=== PATIENT | female | born 1985 | race African-American/Black ===

== ENCOUNTER 2018-08-20 09:41 | Observation (INO) | payer OTHER ==
--- NOTE | 2018-08-20 10:44 | PDOC ---
History of Present Illness - General Chief Complaint: Revisit, Lab Variance Stated Complaint: BLOOD TRANSFUSION Time Seen by Provider: 08/20/18 10:03 History Source: Patient Exam Limitations: No Limitations - History of Present Illness Initial Comments: 08/20/18 10:41 33-year-old female history of heavy periods and fibroids here today complaining of anemia. Patient states she had blood drawn 2 days ago with since told that her hemoglobin was 5 she does report intermittent headaches and feeling lightheaded a few days prior denies any syncope no melena or bloody stools does have heavy periods when present. No other current complaints no known history of previous anemia no prior transfusions Past History - Past Medical History Allergies/Adverse Reactions: Allergies Allergy/AdvReac Type Severity Reaction Status Date / Time No Known Allergies Allergy Verified 08/20/18 09:48 Home Medications: Ambulatory Orders NK [No Known Home Medication] 08/18/18 COPD: No Other medical history: leiomyoma of uterus - Suicide/Smoking/Psychosocial Hx Smoking History: Never smoked Review of Systems - Review of Systems Constitutional: No: Chills, Diaphoresis, Fever Respiratory: No: Cough, Orthopnea, Shortness of Breath Cardiac (ROS): No: Chest Pain, Edema Hematologic/Lymphatic: Yes: Anemia All Other Systems: Reviewed and Negative *Physical Exam - Vital Signs Last Vital Signs Temp Pulse Resp BP Pulse Ox 98.2 F 114 H 16 128/70 100 08/20/18 09:51 08/20/18 09:51 08/20/18 09:51 08/20/18 09:51 08/20/18 09:51 - Physical Exam Comments: 08/20/18 10:43 Awake alert no acute distress lungs are clear bilaterally heart is regular without any murmurs rubs or gallops abdomen is soft and nontender skin is warm and dry no rash noted extremities are warm and well-perfused patient is alert and oriented 3 ED Treatment Course - LABORATORY CBC & Chemistry Diagram: 08/20/18 10:55 08/20/18 10:55 Medical Decision Making - Medical Decision Making 08/20/18 10:43 Differential diagnosis includes iron deficiency anemia hemolytic anemia plan CBC type and screen possible transfusion as needed *DC/Admit/Observation/Transfer Diagnosis at time of Disposition: Anemia - Discharge Dispostion Decision to Admit order: Yes - Referrals - Patient Instructions - Post Discharge Activity
[2018-08-20 11:16] LABS: BASO % 1.7 % (0-2.0); EOS % 2.8 % (0-4.5); HEMATOCRIT 20.9 % (32.4-45.2); MCHC 27.3 g/dl (32.0-36.0); MEAN CELL VOLUME 54.5 fl (80-96); MEAN PLT VOLUME 8.4 fl (7.5-11.1); MONO % 12.1 % (3.8-10.2); NEUT % 35.4 % (42.8-82.8); PLATELET COUNT 471 K/MM3 (134-434); RBC 3.84 M/mm3 (3.60-5.2); RDW 21.6 % (11.6-15.6); WHITE BLOOD COUNT 3.6 K/mm3 (4.0-10.0)
[2018-08-20 11:19] LABS: MCH 14.9 pg (25.7-33.7)
[2018-08-20 11:20] LABS: HEMOGLOBIN 5.7 GM/dL (10.7-15.3)
[2018-08-20 12:01] LABS: ALBUMIN 3.2 g/dl (3.4-5.0); ALK PHOS 57 U/L (45-117); ANION GAP 3 MMOL/L (8-16); BILIRUBIN,TOTAL 0.2 mg/dL (0.2-1); BLOOD UREA NITROGEN 12 mg/dL (7-18); CALCIUM 8.2 mg/dL (8.5-10.1); CHLORIDE 105 mmol/L (98-107); CO2 28 mmol/L (21-32); CREATININE 0.8 mg/dL (0.55-1.3); GLUCOSE,RANDOM 86 mg/dL (74-106); LDH 220 U/L (84-246); POTASSIUM 4.2 mmol/L (3.5-5.1); SGOT/AST 24 U/L (15-37); SGPT/ALT 25 U/L (13-61); SODIUM 136 mmol/L (136-145); TOT PROT 8.3 g/dl (6.4-8.2)
[2018-08-20] MEDS ORDERED: IRON SUCROSE INJECTION 100 MG in SODIUM CHLORIDE 100 ML IVPB ONE (14:45)
--- NOTE | 2018-08-20 15:48 | HP ---
CHIEF COMPLAINT: Lightheadedness PCP: HISTORY OF PRESENT ILLNESS: Patient is a 33 year old female with history significant for uterine fibroids presents with complaint of lightheadedness for the past 2-3 days. States that she had her pre-operative labs drawn at [facility] two days ago for uterine myomectomy scheduled for 08/24/2018. She was informed that her hemoglobin was low, and she was to come to emergency department immediately for blood transfusion and evaluation. She endorses dysmenorrhea, with heavy menstrual periods that have been increasing in severity for the past two years. The menstrual periods last approx. seven days, with worst pain and heaviest bleeding beginning around day three. She is unable to count the number of sanitary pads she uses. She denies history of anemia, and has never received blood transfusion in the past. Today she denies falls, loss of consciousness, headache, change in vision, tinnitus, chest pain, palpitations, abdominal pain, nausea, vomiting, diarrhea, constipation, diarrhea, melena, hematuria, hematochezia. [employer]: A3. Last menstrual period 08/07/2018. She sees Dr. Norman at [facility]. ER course was notable for: (1) Hb 5.7, Hct 20.9, MCV 54.5, Ferritin 2.6 (2) IV Iron, PRBCs (3) Negative stool for occult blood Recent Travel: PAST MEDICAL HISTORY: uterine fibroids PAST SURGICAL HISTORY: appendectomy 15 years ago Social History: Smoking: admits former smoking history of 1 pack per day for two years. Quit 4 years ago. Alcohol: admits former social drinking of approx. 5 bottles of beer. Denies any alcohol within past year. Drugs: Denies illicit drug use. Family History: Mother alive and well at 54 years old, unaware of any medical conditions. Father at 75 years old due to unknown cause. Allergies: Denies any allergies to food, or medication. No Known Allergies Allergy (Verified 08/20/18 09:48) HOME MEDICATIONS: Home Medications Medication Instructions Recorded NK [No Known Home Medication] 08/18/18 REVIEW OF SYSTEMS CONSTITUTIONAL: Absent: fever, chills, diaphoresis, malaise, loss of appetite. HEENT: Absent: rhinorrhea, nasal congestion, throat pain, difficulty swallowing, change in hearing, changes in vision, blurry vision. CARDIOVASCULAR: Admits: lightheadedness. Absent: chest pain, syncope, palpitations, irregular heart rate, peripheral edema RESPIRATORY: Absent: cough, shortness of breath, dyspnea with exertion, orthopnea, wheezing, hemoptysis GASTROINTESTINAL: Absent: abdominal pain, abdominal distension, nausea, vomiting, diarrhea, constipation, melena, hematochezia GENITOURINARY: Admits: dysmenorrhea, menorrhagia. Absent: dysuria, frequency, urgency, hematuria. SKIN: Absent: rash, pruritis, pallor HEMATOLOGIC/IMMUNOLOGIC: Absent: easy bleeding, easy bruising, lymphadenopathy NEUROLOGIC: Absent: headache, focal weakness or paresthesias, unsteady gait, PHYSICAL EXAMINATION Vital Signs - 24 hr 08/20/18 09:51 Temperature 98.2 F Pulse Rate 114 H Respiratory 16 Rate Blood Pressure 128/70 O2 Sat by Pulse 100 Oximetry (%) GENERAL: Patient is awake, alert, oriented to time, person, and place, in no acute distress. HEAD: Normocephalic, atraumatic. EYES: Pupils equal, round and reactive to light b/l. Extraocular movements intact, no nystagmus. Sclera anicteric, conjunctiva without injection. EARS, NOSE, THROAT: Moist mucous membranes. Oropharynx clear without exudates, erythema, or lesion. NECK: Supple without lymphadenopathy, or thyromegaly. LUNGS: Good inspiratory effort. Breath sounds clear to auscultation b/l. No wheezes, or rhonchi appreciated. No accessory muscle use noted. HEART: Regular rate and rhythm. Normal S1 and S2. 3/6 Holosystolic murmur auscultated loudest at left upper sternal border without radiation to b/l carotid arteries. ABDOMEN: Obese. Soft, nondistended, nontender to light and deep palpation X4 quadrants. No guarding, no rebound tenderness. No hepatomegaly or splenomegaly appreciated. Normoactive bowel sounds auscultated X4 quadrants. RECTAL: Good anal sphincter tone. No stool within rectal vault. Light brown streak stool without kai blood noted on gloved finger. Sent for occult blood. UPPER EXTREMITIES: 2+ radial pulses b/l. Warm. Strength 5/5 in flexion, extension, abducton, adduciton b/l. LOWER EXTREMITIES: 2+ dorsalis pedis pulses. Warm, well-perfused. No calf tenderness b/l. No pitting edema b/l. Strength 5/5 b/l hip flexion extension, and knee flexion, extension. 5/5 strength dorsiflexion, plantarflexion. NEUROLOGICAL: Cranial nerves II-XII intact. Normal speech. no gross focal deficits. PSYCHIATRIC: Cooperative. Appropriate mood and affect upon my exam today. SKIN: Warm, dry. God skin turgor. No rashes or lesions noted. Laboratory Results - last 24 hr 08/20/18 08/20/18 08/20/18 10:55 10:55 10:55 WBC 3.6 L RBC 3.84 Hgb 5.7 L* Hct 20.9 L MCV 54.5 L MCH 14.9 L MCHC 27.3 L RDW 21.6 H Plt Count 471 H MPV 8.4 Absolute Neuts (auto) 1.3 L Neutrophils % 35.4 L Lymphocytes % 48.0 H Monocytes % 12.1 H Eosinophils % 2.8 Basophils % 1.7 Nucleated RBC % 1 H Sodium 136 Potassium 4.2 Chloride 105 Carbon Dioxide 28 Anion Gap 3 L BUN 12 Creatinine 0.8 Creat Clearance w eGFR > 60 Random Glucose 86 Calcium 8.2 L Ferritin 2.6 L Total Bilirubin 0.2 AST 24 ALT 25 Alkaline Phosphatase 57 LD Total 220 Total Protein 8.3 H Albumin 3.2 L Stool Occult Blood Blood Type O POSITIVE Antibody Screen Negative Crossmatch See Detail 08/20/18 14:00 WBC RBC Hgb Hct MCV MCH MCHC RDW Plt Count MPV Absolute Neuts (auto) Neutrophils % Lymphocytes % Monocytes % Eosinophils % Basophils % Nucleated RBC % Sodium Potassium Chloride Carbon Dioxide Anion Gap BUN Creatinine Creat Clearance w eGFR Random Glucose Calcium Ferritin Total Bilirubin AST ALT Alkaline Phosphatase LD Total Total Protein Albumin Stool Occult Blood Negative Blood Type Antibody Screen Crossmatch ASSESSMENT/PLAN: Patient is a 33 year old female with history significant for uterine fibroids presents with complaint of lightheadedness for the past 2-3 days secondary to anemia. Microcytic anemia -Hb 5.7, Hct 20.9, MCV 54.5 Ferritin 2.6 -Likely secondary to acute blood loss with menorrhagia due to uterine fibroids, with iron deficiency anemia as a chronic component. -Stool negative for occult blood. -Iron 100mg IV -Patient will require further iron repletion as outpatient. -2 units PRBC. Goal Hb at least above 7.0. -F/U total iron, TIBC, haptoglobin -F/U CBC 1 hour after second blood transfusion -F/U CBC with morning labs Uterine fibroids -Patient scheduled for Myomectomy on 08/24/2018. FEN -2 units PRBCs. Patient tolerates oral intake. Encourage judicious oral hydration. -Electrolytes within normal limits. Will follow CMP -Regular diet Prophylaxis -SCDs B/L lower extremities Disposition -Continue observation in medical surgical floor. Visit type - Emergency Visit Emergency Visit: Yes ED Registration Date: 08/20/18 Care time: The patient presented to the Emergency Department on the above date and was hospitalized for further evaluation of their emergent condition. - New Patient This patient is new to me today: Yes Date on this admission: 08/20/18 - Critical Care Critical Care patient: No Hospitalist Screening - Colonoscopy Questionnaire Colonoscopy Questionnaire: Colonoscopy Questionnaire - Patient: 50 - 75 years old and never had a screening colonoscopy: No History of colon or rectal polyps, or CA: Unknown History of IBD, Crohn's disease or UC: Unknown History of abdominal radiation therapy as a child: Unknown - Relative: 1 with colon or rectal CA, or polyps at age 60 or younger: Unknown Colon or rectal CA diagnosed at age 45 or younger: Unknown Multiple relatives with colon or rectal CA: Unknown - Outcome: Screening Result: Negative Screen
--- NOTE | 2018-08-20 17:06 | PN ---
Teaching Attending Note Name of Resident: Clinton Puentes ATTENDING PHYSICIAN STATEMENT I saw and evaluated the patient. I reviewed the resident's note and discussed the case with the resident. I agree with the resident's findings and plan as documented. SUBJECTIVE: This is a 33 year old woman with a history of uterine fibroids, abnormal uterine bleeding who was sent to the ED for transfusion after she was found to have hemoglobin 5.7. She reports having painful menstrual periods with heavy bleeding that have been worsening over the last 2 years. She had some lightheadedness on 08/17. She denies chest pain, SOB, fatigue, history of anemia , transfusions. She was scheduled to have a myomectomy on 08/24 and as part of her pre-op labs was found to have hemoglobin 5.7. OBJECTIVE: Vital Signs Period Temp Pulse Resp BP Sys/Steinberg Pulse Ox Last 24 Hr 98.2 F 114 16 128/70 100 HEART: S1S2, tachycardic, (+) 2/6 systolic murmur LUNGS: Clear ABDOMEN: Soft, non-tender, non-distended, normal BS EXTREMITIES: No edema Laboratory Tests 08/20/18 08/20/18 08/20/18 10:55 10:55 10:55 WBC 3.6 L RBC 3.84 Hgb 5.7 L* Hct 20.9 L MCV 54.5 L MCH 14.9 L MCHC 27.3 L RDW 21.6 H Plt Count 471 H MPV 8.4 Absolute Neuts (auto) 1.3 L Neutrophils % 35.4 L Lymphocytes % 48.0 H Monocytes % 12.1 H Eosinophils % 2.8 Basophils % 1.7 Nucleated RBC % 1 H Sodium 136 Potassium 4.2 Chloride 105 Carbon Dioxide 28 Anion Gap 3 L BUN 12 Creatinine 0.8 Creat Clearance w eGFR > 60 Random Glucose 86 Calcium 8.2 L Ferritin 2.6 L Total Bilirubin 0.2 AST 24 ALT 25 Alkaline Phosphatase 57 LD Total 220 Total Protein 8.3 H Albumin 3.2 L Stool Occult Blood Blood Type O POSITIVE Antibody Screen Negative Crossmatch See Detail 08/20/18 14:00 WBC RBC Hgb Hct MCV MCH MCHC RDW Plt Count MPV Absolute Neuts (auto) Neutrophils % Lymphocytes % Monocytes % Eosinophils % Basophils % Nucleated RBC % Sodium Potassium Chloride Carbon Dioxide Anion Gap BUN Creatinine Creat Clearance w eGFR Random Glucose Calcium Ferritin Total Bilirubin AST ALT Alkaline Phosphatase LD Total Total Protein Albumin Stool Occult Blood Negative Blood Type Antibody Screen Crossmatch Home Medications Medication Instructions Recorded NK [No Known Home Medication] 08/18/18 ASSESSMENT AND PLAN: This is a 33 year old woman with a history of abnormal uterine bleeding from fibroids who was sent to the ED because of anemia. 1. Severe symptomatic anemia secondary to acute blood loss - Had lightheadedness and tachycardia - Transfuse to hemoglobin > 7.0 2. Iron deficiency anemia secondary to chronic blood loss from abnormal uterine bleeding - Ferritin is 2.6 - IV iron sucrose - Plan for myomectomy 08/24
[2018-08-20 17:33] VITALS: BMI 30.3
[2018-08-21 02:49] LABS: HEMATOCRIT 26.7 % (32.4-45.2); HEMOGLOBIN 7.9 GM/dL (10.7-15.3); MCHC 29.4 g/dl (32.0-36.0); MEAN CELL VOLUME 60.1 fl (80-96); MEAN PLT VOLUME 8.7 fl (7.5-11.1); PLATELET COUNT 413 K/MM3 (134-434); RBC 4.45 M/mm3 (3.60-5.2); RDW 27.6 % (11.6-15.6); WHITE BLOOD COUNT 4.3 K/mm3 (4.0-10.0)
[2018-08-21 02:58] LABS: MCH 17.7 pg (25.7-33.7)
[2018-08-21 08:04] LABS: HEMATOCRIT 30.4 % (32.4-45.2); HEMOGLOBIN 8.6 GM/dL (10.7-15.3); MCHC 28.3 g/dl (32.0-36.0); MEAN CELL VOLUME 59.7 fl (80-96); MEAN PLT VOLUME 8.5 fl (7.5-11.1); PLATELET COUNT 439 K/MM3 (134-434); RDW 27.2 % (11.6-15.6); WHITE BLOOD COUNT 5.2 K/mm3 (4.0-10.0)
[2018-08-21 08:33] LABS: ALBUMIN 3.3 g/dl (3.4-5.0); ALK PHOS 54 U/L (45-117); ANION GAP 8 MMOL/L (8-16); BILIRUBIN,TOTAL 0.5 mg/dL (0.2-1); BLOOD UREA NITROGEN 13 mg/dL (7-18); CHLORIDE 105 mmol/L (98-107); CO2 24 mmol/L (21-32); CREATININE 0.6 mg/dL (0.55-1.3); GLUCOSE,RANDOM 76 mg/dL (74-106); POTASSIUM 4.5 mmol/L (3.5-5.1); SGOT/AST 23 U/L (15-37); SGPT/ALT 26 U/L (13-61); SODIUM 137 mmol/L (136-145); TOT PROT 8.7 g/dl (6.4-8.2)
[2018-08-21 08:39] LABS: INR 1.06 (0.83-1.09)
[2018-08-21 08:52] LABS: MCH 16.9 pg (25.7-33.7)
[2018-08-21 11:29] LABS: ANISOCYTOSIS 1+; MACROCYTOSIS 0
--- NOTE | 2018-08-21 13:30 | DS ---
Physical Exam: SUBJECTIVE: Patient seen and examined OBJECTIVE: Vital Signs Period Temp Pulse Resp BP Sys/Steinberg Pulse Ox Last 24 Hr 98.1 F-99.0 F 74-87 18-20 107-125/59-75 96-100 PHYSICAL EXAM GENERAL: The patient is awake, alert, and fully oriented, in no acute distress. HEAD: Normal with no signs of trauma. EYES: PERRL, extraocular movements intact, sclera anicteric, conjunctiva clear. ENT: Ears normal, nares patent, oropharynx clear without exudates, moist mucous membranes. NECK: Trachea midline, full range of motion, supple. LUNGS: Breath sounds equal, clear to auscultation bilaterally, no wheezes, no crackles, no accessory muscle use. HEART: Regular rate and rhythm, S1, S2 without murmur, rub or gallop. ABDOMEN: Soft, nontender, nondistended, normoactive bowel sounds, no guarding, no rebound, no hepatosplenomegaly, no masses. EXTREMITIES: 2+ pulses, warm, well-perfused, no edema. NEUROLOGICAL: Cranial nerves II through XII grossly intact. Normal speech, gait not observed. PSYCH: Normal mood, normal affect. SKIN: Warm, dry, normal turgor, no rashes or lesions noted. LABS Laboratory Results - last 24 hr 08/20/18 08/20/18 08/20/18 10:55 10:55 14:00 WBC RBC Hgb Hct MCV MCH MCHC RDW Plt Count MPV Absolute Neuts (auto) Neutrophils % Neutrophils % (Manual) Band Neutrophils % Lymphocytes % Lymphocytes % (Manual) Monocytes % (Manual) Eosinophils % (Manual) Basophils % (Manual) Myelocytes % (Man) Promyelocytes % (Man) Blast Cells % (Manual) Nucleated RBC % Metamyelocytes Hypochromia Polychromasia Poikilocytosis Anisocytosis Microcytosis Macrocytosis Haptoglobin 130 PT with INR INR Sodium Potassium Chloride Carbon Dioxide Anion Gap BUN Creatinine Creat Clearance w eGFR Random Glucose Calcium Total Bilirubin AST ALT Alkaline Phosphatase Total Protein Albumin Stool Occult Blood Negative Blood Type O POSITIVE Antibody Screen Negative Crossmatch See Detail 08/21/18 08/21/18 08/21/18 01:30 07:00 07:00 WBC 4.3 5.2 RBC 4.45 5.10 Hgb 7.9 L 8.6 L Hct 26.7 L D 30.4 L MCV 60.1 L D 59.7 L MCH 17.7 L D 16.9 L MCHC 29.4 L 28.3 L RDW 27.6 H 27.2 H Plt Count 413 439 H MPV 8.7 8.5 Absolute Neuts (auto) 2.2 Neutrophils % No Result Required. Neutrophils % (Manual) 67.0 Band Neutrophils % 0.0 Lymphocytes % No Result Required. Lymphocytes % (Manual) 23.1 D Monocytes % (Manual) 8 Eosinophils % (Manual) 2.2 D Basophils % (Manual) 0.0 Myelocytes % (Man) 0 Promyelocytes % (Man) 0 Blast Cells % (Manual) 0 Nucleated RBC % 3 H Metamyelocytes 0 Hypochromia 2+ Polychromasia 2+ Poikilocytosis 0 Anisocytosis 1+ Microcytosis 0 Macrocytosis 0 Haptoglobin PT with INR 12.00 INR 1.06 Sodium Potassium Chloride Carbon Dioxide Anion Gap BUN Creatinine Creat Clearance w eGFR Random Glucose Calcium Total Bilirubin AST ALT Alkaline Phosphatase Total Protein Albumin Stool Occult Blood Blood Type Antibody Screen Crossmatch 08/21/18 07:30 WBC RBC Hgb Hct MCV MCH MCHC RDW Plt Count MPV Absolute Neuts (auto) Neutrophils % Neutrophils % (Manual) Band Neutrophils % Lymphocytes % Lymphocytes % (Manual) Monocytes % (Manual) Eosinophils % (Manual) Basophils % (Manual) Myelocytes % (Man) Promyelocytes % (Man) Blast Cells % (Manual) Nucleated RBC % Metamyelocytes Hypochromia Polychromasia Poikilocytosis Anisocytosis Microcytosis Macrocytosis Haptoglobin PT with INR INR Sodium 137 Potassium 4.5 Chloride 105 Carbon Dioxide 24 Anion Gap 8 BUN 13 Creatinine 0.6 Creat Clearance w eGFR > 60 Random Glucose 76 Calcium 9.0 Total Bilirubin 0.5 AST 23 ALT 26 Alkaline Phosphatase 54 Total Protein 8.7 H Albumin 3.3 L Stool Occult Blood Blood Type Antibody Screen Crossmatch HOSPITAL COURSE: Date of Admission:08/20/18 Date of Discharge: 08/21/18 Discharge Summary Reason For Visit: ANEMIA Current Active Problems Anemia (Acute) Condition: Improved - Instructions Diet, Activity, Other Instructions: You were admitted for dangerously low blood hemoglobin level, and low Iron You were treated with iron and two units blood transfusions, and your hemoglobin levels increased appropriately. It is important that you follow up with the blood specialist (Dr. Ruggiero- [facility]) within one week of discharge, as you may require additional Iron transfusions. It is important that you follow up with your OBGYN Dr. Santizo before your procedure on 08/24/2018. Please return to the nearest emergency department if you experience lightheadedness, dizziness, any bleeding, increased bruising, chest pain, palpitations. Referrals: Angelina Santizo MD [Staff Physician] - 08/22/18 Danish Ruggiero MD [Staff Physician] - 1 Week Disposition: HOME - Home Medications Comprehensive Discharge Medication List: Ambulatory Orders NK [No Known Home Medication] 08/18/18
[2018-08-21 13:47] VITALS: BP 119/75; PULSE 84; TEMP 99
--- NOTE | 2018-08-21 15:02 | PN ---
Teaching Attending Note Name of Resident: Clinton Puentes ATTENDING PHYSICIAN STATEMENT I saw and evaluated the patient. I reviewed the resident's note and discussed the case with the resident. I agree with the resident's findings and plan as documented. SUBJECTIVE: no fever or chills. No SOB , no Cp. no light headedness. OBJECTIVE: NAD Cv: RRR, 3/6 Sm at LUSB Lungs: CTAB ext: no edema Abd: soft, NT, ND , NL BS ASSESSMENT AND PLAN: 33 y/o lady with h/o anemia form abnormal vaginal bleed who presented with severe anemia 1- severe symptomatic anemia . 2- abnormal vaginal bleed 3- uterine fibroids plan ; - Hb stable s/p transfusion - received IV iron x 1, will refer to heme for full course of iron transfusion - echo for heart murmur as out pt. could be flow murmur due to anemia - start po irion and stool softner dc home . follow up for her sx on 08/24
[2018-08-21 16:46] LABS: PLATELET ESTIMATE INCREASED
--- NOTE | 2018-08-21 16:49 | DS ---
Physical Exam: SUBJECTIVE: Patient seen and examined at bedside. Patient received two units of PRBCs yesterday, and denies any acute complaints this morning. Deneis headache, flushing, fevers, chills, chest pain, palpitations, abdominal pain, nausea, vomiting, diarrhea, bleeding, bruising. OBJECTIVE: Vital Signs Period Temp Pulse Resp BP Sys/Steinberg Pulse Ox Last 24 Hr 98.1 F-99.0 F 74-87 18-20 107-125/59-75 96-100 PHYSICAL EXAM GENERAL: Patient is awake, alert, oriented to time, person, and place, in no acute distress. HEAD: Normocephalic, atraumatic. EYES: Pupils equal, round and reactive to light b/l. Extraocular movements intact, no nystagmus. Sclera anicteric, conjunctiva without injection. EARS, NOSE, THROAT: Moist mucous membranes. Oropharynx clear without exudates, erythema, or lesion. NECK: Supple without lymphadenopathy, or thyromegaly. LUNGS: Good inspiratory effort. Breath sounds clear to auscultation b/l. No wheezes, or rhonchi appreciated. No accessory muscle use noted. HEART: Regular rate and rhythm. Normal S1 and S2. 3/6 Holosystolic murmur auscultated loudest at left upper sternal border without radiation to b/l carotid arteries. ABDOMEN: Obese. Soft, nondistended, nontender to light and deep palpation X4 quadrants. No guarding, no rebound tenderness. No hepatomegaly or splenomegaly appreciated. Normoactive bowel sounds auscultated X4 quadrants. RECTAL: Good anal sphincter tone. No stool within rectal vault. Light brown streak stool without kai blood noted on gloved finger. Sent for occult blood. UPPER EXTREMITIES: 2+ radial pulses b/l. Warm. Strength 5/5 in flexion, extension, abducton, adduciton b/l. LOWER EXTREMITIES: 2+ dorsalis pedis pulses. Warm, well-perfused. No calf tenderness b/l. No pitting edema b/l. Strength 5/5 b/l hip flexion extension, and knee flexion, extension. 5/5 strength dorsiflexion, plantarflexion. NEUROLOGICAL: Cranial nerves II-XII intact. Normal speech. no gross focal deficits. PSYCHIATRIC: Cooperative. Appropriate mood and affect upon my exam today. SKIN: Warm, dry. God skin turgor. No rashes or lesions noted. LABS Laboratory Results - last 24 hr 08/20/18 08/20/18 08/21/18 10:55 10:55 01:30 WBC 4.3 RBC 4.45 Hgb 7.9 L Hct 26.7 L D MCV 60.1 L D MCH 17.7 L D MCHC 29.4 L RDW 27.6 H Plt Count 413 MPV 8.7 Absolute Neuts (auto) Neutrophils % Neutrophils % (Manual) Band Neutrophils % Lymphocytes % Lymphocytes % (Manual) Monocytes % (Manual) Eosinophils % (Manual) Basophils % (Manual) Myelocytes % (Man) Promyelocytes % (Man) Blast Cells % (Manual) Nucleated RBC % Metamyelocytes Hypochromia Platelet Estimate Polychromasia Poikilocytosis Anisocytosis Microcytosis Macrocytosis Haptoglobin 130 PT with INR INR Sodium Potassium Chloride Carbon Dioxide Anion Gap BUN Creatinine Creat Clearance w eGFR Random Glucose Calcium Total Bilirubin AST ALT Alkaline Phosphatase Total Protein Albumin Blood Type O POSITIVE Antibody Screen Negative Crossmatch See Detail 08/21/18 08/21/18 08/21/18 07:00 07:00 07:30 WBC 5.2 RBC 5.10 Hgb 8.6 L Hct 30.4 L MCV 59.7 L MCH 16.9 L MCHC 28.3 L RDW 27.2 H Plt Count 439 H MPV 8.5 Absolute Neuts (auto) 2.2 Neutrophils % No Result Required. Neutrophils % (Manual) 67.0 Band Neutrophils % 0.0 Lymphocytes % No Result Required. Lymphocytes % (Manual) 23.1 D Monocytes % (Manual) 8 Eosinophils % (Manual) 2.2 D Basophils % (Manual) 0.0 Myelocytes % (Man) 0 Promyelocytes % (Man) 0 Blast Cells % (Manual) 0 Nucleated RBC % 3 H Metamyelocytes 0 Hypochromia 2+ Platelet Estimate Increased Polychromasia 2+ Poikilocytosis 0 Anisocytosis 1+ Microcytosis 0 Macrocytosis 0 Haptoglobin PT with INR 12.00 INR 1.06 Sodium 137 Potassium 4.5 Chloride 105 Carbon Dioxide 24 Anion Gap 8 BUN 13 Creatinine 0.6 Creat Clearance w eGFR > 60 Random Glucose 76 Calcium 9.0 Total Bilirubin 0.5 AST 23 ALT 26 Alkaline Phosphatase 54 Total Protein 8.7 H Albumin 3.3 L Blood Type Antibody Screen Crossmatch HOSPITAL COURSE: Date of Admission:08/20/18 Date of Discharge: 08/21/18 Patient is a 33 year old female with history significant for uterine fibroids presents with complaint of lightheadedness for the past 2-3 days secondary to anemia. She was completing pre-operative labs for uterine myomectomy scheduled for 08/24/2018. She was noted to have Hb on 5.7, Hct 20.9, MCV 54.5 Ferritin 2.6. Anemia likely secondary to acute blood loss with menorrhagia due to uterine fibroids, with iron deficiency anemia as a chronic component. Stool negative for occult blood. Patient received Iron 100mg IV, and 2 units PRBCs. Repeat CBC 1 hour after second transfusion was Hb 7.9, and increased to 8.6 on repeat morning labs. Patient was discharged with instruction to follow up with floor press operator for iron transfusion, and healthcare risk control consultant for evaluation of murmur noted on exam. She was discharged with ferrous sulfate and colace. She was also instructed to follow up with her OBGYN before the surgical procedure. Minutes to complete discharge: 35 Discharge Summary Reason For Visit: ANEMIA Current Active Problems Fibroid (bleeding) (uterine) (Acute) Condition: Improved - Instructions Diet, Activity, Other Instructions: You were admitted for dangerously low blood hemoglobin level of 5.4, and low Iron You were treated with IV iron and two units blood transfusions, and your hemoglobin levels increased appropriately. It is important that you follow up with the blood specialist (Dr. Ruggiero- Content Strategy Lead) within one week of discharge, as you may require additional Iron transfusions. It is important that you follow up with your OBGYN Dr. Santizo before your procedure on 08/24/2018. Please return to the nearest emergency department if you experience lightheadedness, dizziness, any bleeding, increased bruising, chest pain, palpitations. take iron twice a day, for one week and then three times a day after then. take stool softener with that as it will make you constipated. you need echo for your murmur. please notify your PCP Referrals: Angelina Santizo MD [Staff Physician] - 08/22/18 Danish Ruggiero MD [Staff Physician] - 1 Week Disposition: HOME - Home Medications Comprehensive Discharge Medication List: Ambulatory Orders Docusate Sodium [Colace -] 100 mg PO BID #60 capsule 08/21/18 Ferrous Sulfate [Feosol] 325 mg PO TID #60 tablet 08/21/18 This patient is new to me today: No Emergency Visit: Yes ED Registration Date: 08/20/18 Care time: The patient presented to the Emergency Department on the above date and was hospitalized for further evaluation of their emergent condition. Critical Care patient: No - Discharge Referral Referred to [facility] No
[2018-08-22 06:06] LABS: SERUM IRON SATURATION 14 % (15-55); TOTAL IRON BINDING CAPACITY 410 ug/dL (250-450); UIBC 353 ug/dL (131-425)
== END 2018-08-21 16:05 | disposition home or self-care (01) ==
LOC: JER 09:41 → JERBED 11:39 → J7W 16:52
PROVIDERS: ADMIT Internal Medicine; ATTEND Internal Medicine
PROC: 3E033GC Introduction of Other Therapeutic Substance into Peripheral Vein, Percutaneous Approach (ICD-10-PCS; principal; 2018-08-20)
PROC: 30233N1 Transfusion of Nonautologous Red Blood Cells into Peripheral Vein, Percutaneous Approach (ICD-10-PCS; 2018-08-20)
DX: D62 Acute posthemorrhagic anemia (principal); N92.0 Excessive and frequent menstruation with regular cycle; D25.9 Leiomyoma of uterus, unspecified; N94.6 Dysmenorrhea, unspecified; R00.2 Palpitations
CPT/HCPCS: 36415; 36430; 80053; 82272; 82728; 83010; 83540; 83550; 83615; 85025; 85027; 85610; 86850; 86900; 86901; 86922; 99285-25; G0378; J1756; P9038; P9058

== ENCOUNTER 2018-08-24 05:18 | Inpatient (IN) | payer OTHER ==
[2018-08-24 08:26] LABS: EOS % 2.7 % (0-4.5); HEMATOCRIT 32.5 % (32.4-45.2); HEMOGLOBIN 9.3 GM/dL (10.7-15.3); LYMPH % 42.6 % (8-40); MCHC 28.6 g/dl (32.0-36.0); MEAN CELL VOLUME 63.3 fl (80-96); MEAN PLT VOLUME 8.3 fl (7.5-11.1); MONO % 11.2 % (3.8-10.2); NEUT % 42.5 % (42.8-82.8); PLATELET COUNT 423 K/MM3 (134-434); RBC 5.14 M/mm3 (3.60-5.2); RDW 29.5 % (11.6-15.6); WHITE BLOOD COUNT 5.5 K/mm3 (4.0-10.0)
[2018-08-24 08:27] LABS: MCH 18.1 pg (25.7-33.7)
[2018-08-24 09:18] VITALS: BMI 30.3
[2018-08-24] MEDS ORDERED: ROPIVACAINE HCL 0.5% 30ML VIAL ONE (10:30)
[2018-08-24] MEDS ORDERED: DEXAMETHASONE SOD PHOSPHATE/PF 10 MG/ML SDV ONE (10:30)
[2018-08-24] MEDS ORDERED: MIDAZOLAM HCL 2 MG/2 ML SINGLE DOSE VIAL ONE ×2 (10:31)
[2018-08-24] MEDS ORDERED: ROCURONIUM BROMIDE 50 MG/5 ML VIAL ONE (10:45)
[2018-08-24] MEDS ORDERED: fentaNYL CITRATE 250 MCG/5 ML VIAL ONE (10:45)
[2018-08-24] MEDS ORDERED: VASOPRESSIN 20 UNITS/ML VIAL IV ONE ×2 (10:57)
[2018-08-24] MEDS ORDERED: ceFAZolin SODIUM 1 GM VIAL IVPB ONE (12:02)
[2018-08-24] MEDS ORDERED: DESFLURANE GAS 240 ML BOTTLE IH ONE (12:25)
--- NOTE | 2018-08-24 13:43 | OP ---
Operative Note - Note: Operative Date: 08/24/18 Pre-Operative Diagnosis: Leiomyoma. Ovarian Cyst. Vaginal bleeding. Anemia Operation: Open abdominal myomectomy, ovarian cystectomy Post-Operative Diagnosis: Same as Pre-op (Endometriosis) Surgeon: Rafa Ahumada Toe Former Stitchdowns: Angelina Santizo Anesthesiologist/FIRE HOSE CURER: Emir Vega Anesthesia: General Specimens Removed: Uterine fibroids. Ovarian cyst Estimated Blood Loss (mls): 50 Blood Volume Replaced (mls): 400 Fluid Volume Replaced (mls): 800 Operative Report Dictated: Yes
[2018-08-24] MEDS ORDERED: ONDANSETRON 4 MG/2 ML VIAL IVPUSH PRN (13:44)
[2018-08-24] MEDS ORDERED: HYDROmorphone *PCA* 10MG/50ML DISP.SYRIN PCA SCH ×2 (13:45→14:45)
--- NOTE | 2018-08-24 13:45 | SURG ---
Surgery Shopper'S Aide Note Shopper'S Aide: Rafa Ahumada PA-C Date of Service: 08/24/18 Diagnosis: Endometriosis. Leiomyoma. Anemia. Ovarian cyst Procedure: Open abdominal myomectomy with ovarian cystectomy I was present for the entirety of the operative procedure. For further detail, please refer to operative report. Visit type - Case Type Case Type: Scheduled - New patient This patient is new to me today: Yes Date on this admission: 08/24/18
[2018-08-24] MEDS ORDERED: FLU VACCINE QUAD 60 MCG/0.5 ML (MDV 18-19) IM ONE (16:17)
[2018-08-24] MEDS: FERROUS SO4 325 MG TABLET (FP) PO SCH (16:56)
[2018-08-24 18:23] LABS: BASO % 0.3 % (0-2.0); EOS % 0.1 % (0-4.5); HEMATOCRIT 30.5 % (32.4-45.2); HEMOGLOBIN 8.8 GM/dL (10.7-15.3); MCHC 28.8 g/dl (32.0-36.0); MEAN PLT VOLUME 8.7 fl (7.5-11.1); MONO % 3.2 % (3.8-10.2); NEUT % 85.4 % (42.8-82.8); PLATELET COUNT 388 K/MM3 (134-434); RBC 4.76 M/mm3 (3.60-5.2); WHITE BLOOD COUNT 7.1 K/mm3 (4.0-10.0)
[2018-08-24 18:36] LABS: MCH 18.5 pg (25.7-33.7)
[2018-08-24] MEDS: DOCUSATE SODIUM 100 MG CAPSULE (FP) PO SCH (22:23)
--- NOTE | 2018-08-25 06:07 | PN ---
Progress Note (SOAP) - Subjective Chief Complaint: Pt doing well - Current Medications Current Medications: Active Medications Docusate Sodium (Colace -) 100 mg PO BID [facility] Last Admin: 08/24/18 22:23 Dose: Not Given Enoxaparin Sodium (Lovenox -) 40 mg SQ DAILY [facility] Ferrous Sulfate (Feosol -) 325 mg PO TIDCM [facility] Last Admin: 08/24/18 16:56 Dose: Not Given Hydromorphone HCl (Dilaudid Flight Tower Dispatcher -) 10 mg SIZING MACHINE TENDER SIZING MACHINE TENDER [facility]; Protocol Stop: 08/27/18 14:44 Last Admin: 08/24/18 14:15 Dose: 10 mg Lactated Ringer's (Lactated Ringers Solution) 1,000 mls @ 125 mls/hr IV ASDIR [facility] Influenza Virus Vaccine Quadrival (Flulaval Quad [id number]) 60 mcg IM .ONCE ONE Stop: 08/25/18 18:01 - Objective Vital Signs: Vital Signs Temperature 98.3 F 08/25/18 02:00 Pulse Rate 67 08/25/18 02:00 Respiratory Rate 20 08/25/18 02:00 Blood Pressure 115/56 L 08/25/18 02:00 O2 Sat by Pulse Oximetry (%) 98 08/24/18 21:00 Constitutional: Yes: Well Nourished, No Distress Neck: Yes: WNL Cardiovascular: Yes: WNL Respiratory: Yes: WNL Gastrointestinal: Yes: WNL, Soft Genitourinary: Yes: WNL Breast(s): Yes: WNL Musculoskeletal: Yes: WNL Extremities: Yes: WNL Edema: No Wound/Incision: Yes: Clean/Dry, Steri Strips, Dressing Removed Neurological: Yes: WNL, Alert, Oriented Labs Lab Results: CBC, BMP 08/24/18 17:00 Assessment/Plan POD1 SP Abdominal myomectomy Plan OOB Percocet
--- NOTE | 2018-08-25 07:05 | OP ---
DATE OF OPERATION: 08/24/2018 PREOPERATIVE DIAGNOSIS: Leiomyomatous uterus, ovarian cyst, vaginal bleeding, and anemia. OPERATION: Abdominal myomectomy and left ovarian cystectomy. POSTOPERATIVE DIAGNOSIS: Leiomyomatous uterus, ovarian cyst, vaginal bleeding, and anemia, as well as endometriosis. SURGEON: Angelina Santizo MD DYED YARN OPERATOR: JAMESON Pagan EXTRUDER OPERATOR MULTIPLE: Emir Vega CRNA ANESTHESIA: General. FINDINGS: Multiple myomas approximately 20 removed as well as hemorrhagic left ovarian cyst. ESTIMATED BLOOD LOSS: 50 mL. PROCEDURE: Patient was taken to the operating room, placed in supine position, prepped and draped in the usual sterile fashion. A time-out was performed in accordance with hospital regulations. A Pfannenstiel skin incision was made with the scalpel. Cautery was then used to go through the layers of abdominal wall to the level of the fascia. Fascia was cut in the midline, and cautery was then used to open the fascia in smiling fashion. Roma was then used to bluntly and sharply dissect the rectus muscle at the fascia. The muscle was split in the midline. The peritoneal cavity was then entered and carried upward and downwards. Abdominal packing was performed and large leiomyomatous uterus was exteriorized. Aurora drain was then placed in the clear space of the broad ligament and tied to prevent bleeding. Pitressin was then infiltrated into the serosa of the uterus. Multiple incisions were made and large amount of myomas were enucleated out posteriorly and anteriorly. A large 4-cm myoma was removed from the endometrial cavity as well as multiple myomas were removed from the endometrial cavity. Endometrial cavity was then repaired with 2-0 Vicryl suture in a continuous locking fashion, and muscle was used on all layers of the incisions using 0 Vicryl suture in a continuous locking fashion. Then, 2-0 V-Loc suture was then used on the serosa to close approximately 4 incisions, 2 anteriorly and 2 posteriorly. Incisions were all closed, and hemostasis was achieved. Interceed was placed the incisions, and uterus was then anteriorized, packing was removed. Pack count was normal and abdominal sweep done. Attention was then turned to the left ovary where 2 cysts were removed from the left ovary. Cautery was then used to enter the ovary, and cystectomies were performed, and specimen was submitted to Pathology. Hemostasis was achieved using coagulation using the Bovie. After hemostasis was achieved and ovary was placed back into the abdominal cavity, peritoneum was closed using 0 Vicryl suture in continuous fashion. Muscle was approximated using 0 Vicryl suture. Fascia was closed using 0 Vicryl suture in 2 parts. Skin was then closed using 3-0 Vicryl in a subcuticular fashion. Wound was washed and dressed. Patient tolerated the procedure well. Estimated blood loss was 50 mL. Heidy HENDRICKSON/[id number]
[2018-08-25 08:18] LABS: HEMATOCRIT 30.4 % (32.4-45.2); HEMOGLOBIN 8.6 GM/dL (10.7-15.3); MCHC 28.5 g/dl (32.0-36.0); MEAN CELL VOLUME 64.3 fl (80-96); MEAN PLT VOLUME 8.4 fl (7.5-11.1); PLATELET COUNT 306 K/MM3 (134-434); RBC 4.72 M/mm3 (3.60-5.2); WHITE BLOOD COUNT 6.4 K/mm3 (4.0-10.0)
[2018-08-25 08:21] LABS: MCH 18.3 pg (25.7-33.7)
[2018-08-25] MEDS: FERROUS SO4 325 MG TABLET (FP) PO SCH ×3 (08:27→17:38)
--- NOTE | 2018-08-25 08:33 | PN ---
Progress Note (short form) - Note Progress Note: Post op day#1.S/p Abdominal myomectomy under GA with TAP block uneventful.Patient stable on Dilaudid COSTUME DIRECTOR c/o pain score of 4-5/10.Will DC director of marketing google performance ads and put patient on prn pain medication.No any anesthesia related problem.Patient Dc from the anesthesia care.
[2018-08-25] MEDS ORDERED: oxyCODONE HCL 5 MG TABLET PO PRN (08:48)
[2018-08-25] MEDS ORDERED: ACETAMINOPHEN 500 MG TABLET (FP) PO PRN (08:49)
[2018-08-25 08:53] LABS: ANION GAP 7 MMOL/L (8-16); BLOOD UREA NITROGEN 14 mg/dL (7-18); CALCIUM 8.2 mg/dL (8.5-10.1); CHLORIDE 104 mmol/L (98-107); CO2 24 mmol/L (21-32); CREATININE 0.6 mg/dL (0.55-1.3); GLUCOSE,RANDOM 76 mg/dL (74-106); POTASSIUM 4.3 mmol/L (3.5-5.1); SODIUM 136 mmol/L (136-145)
[2018-08-25] MEDS: DOCUSATE SODIUM 100 MG CAPSULE (FP) PO SCH ×2 (09:11→21:59)
[2018-08-25] MEDS: ENOXAPARIN NA (PORCINE) 40 MG/0.4 ML DISP.SYRIN SQ SCH (09:11)
[2018-08-25] MEDS: LACTATED RINGERS SOLUTION 1,000 ML IV SCH ×2 (12:50→21:11)
[2018-08-25] MEDS ORDERED: PCA PUMP KEY 1 EACH EACH ONE (12:51)
[2018-08-25] MEDS: oxyCODONE HCL 5 MG TABLET PO PRN ×3 (12:56→21:59)
--- NOTE | 2018-08-25 13:21 | PATH ---
Surgical Pathology Report Patient Name: MELBA MAXWELL [facility]. Rec. #: [id number] /Age/Gender: 1985 (Age: 33) / F Account: [id number] Location: [facility] OBS/THERMAL CUTTING MACHINE OPERATOR Taken: 08/24/2018 Received: 08/24/2018 Reported: 08/25/2018 Physicians: Angelina Santizo M.D. Specimen(s) Received A: LEFT OVARIAN CYST B: UTERINE FIBROIDS Clinical History Leiomyoma of uterus Final Diagnosis A. OVARIAN CYST, LEFT, CYSTECTOMY: FRAGMENTS OF BENIGN OVARIAN CYST CONSISTENT WITH HEMORRHAGIC CORPUS LUTEUM CYST. B. UTERUS, FIBROIDS, ABDOMINAL MYOMECTOMY: LEIOMYOMA(TA) WITH FOCAL DEGENERATIVE CHANGES. Electronically Signed Danitza Alegre M.D. Gross Description A. Received in formalin labeled "left ovarian cyst" are multiple fragments of pink-pantoja focally hemorrhagic soft tissue measuring 2 x 1.5 x 0.3 cm in aggregate. The entire specimen is submitted in one cassette B. Received in formalin labeled "uterine fibroids" are multiple white-pantoja fibrous tissue consistent with fibroids weighing 135 g, ranging in size from 1 cm to 10 cm in diameter, and measuring 9 x 8 x 5 cm in aggregate. Cut section shows a whorled architecture. No areas of hemorrhage or necrosis identified. Industrial Automation Engineer sections are submitted in 5 cassettes as follows: B1-3 largest nodule, B4-second largest nodule, B5-Industrial Automation Engineer sections of smaller nodules. MLSZ/08/24/2018 sanangella/08/24/2018
[2018-08-25] MEDS: ACETAMINOPHEN 325 MG TABLET (FP) PO PRN ×2 (17:39→21:59)
[2018-08-26] MEDS: LACTATED RINGERS SOLUTION 1,000 ML IV SCH (04:10)
[2018-08-26] MEDS: FERROUS SO4 325 MG TABLET (FP) PO SCH ×2 (08:35→12:04)
[2018-08-26] MEDS: DOCUSATE SODIUM 100 MG CAPSULE (FP) PO SCH (09:32)
[2018-08-26] MEDS: ENOXAPARIN NA (PORCINE) 40 MG/0.4 ML DISP.SYRIN SQ SCH (09:32)
[2018-08-26 10:10] VITALS: BP 121/77; PULSE 81; TEMP 98
--- NOTE | 2018-08-26 11:48 | DS ---
"Physical Examination Vital Signs: Vital Signs Temperature 98 F 08/26/18 10:00 Pulse Rate 81 08/26/18 10:00 Respiratory Rate 20 08/26/18 10:00 Blood Pressure 121/77 08/26/18 10:00 O2 Sat by Pulse Oximetry (%) 98 08/24/18 21:00 Constitutional: Yes: Well Nourished, No Distress, Calm Eyes: Yes: Conjunctiva Clear, EOM Intact HENT: Yes: Atraumatic, Normocephalic Neck: Yes: Supple, Trachea Midline Cardiovascular: Yes: Regular Rate and Rhythm Respiratory: Yes: WNL Gastrointestinal: Yes: Normal Bowel Sounds, Soft, Tenderness (appropriate post surgical tenderness) Extremities: Yes: WNL Wound/Incision: Yes: Clean/Dry, Well Approximated Neurological: Yes: Alert, Oriented Psychiatric: Yes: Alert, Oriented Labs: CBC, BMP 08/25/18 06:15 08/25/18 06:15 Discharge Summary Reason For Visit: LEIOMYOM OF UTERUS Procedures: Principal: Abdominal myomectomy Hospital Course: Pt admitted on 08/24/18 for scheduled abdominal myomectomy. The patient underwent an uncomplicated procedure on that date and had an unremarkable post op recovery. She was discharged home on post op day 2. Condition: Stable - Instructions Diet, Activity, Other Instructions: Dr. Angelina Santizo Town Clerk discharge instructions Physical activity Resume your normal everyday activity as tolerated no heavy lifting or exercise until seen by your surgeon. You may walk unlimited todd of and climb stairs. You may resume driving the car when you feel safe and comfortable behind the wheel. No sexual activity as instructed by Dr. Santizo. Wound care If you have a bandage, leave it on, and keep dry for 48-72 hours. After that time discard the outer bandage. If they are tapes on the skin under the out of bandage leave them in place. They will peel off in the next 7 to 10 days. Do Not Peel them off. You may shower the day after surgery. If there are tapes present on the skin, you may shower over them. Diet There are no dietary restrictions. Eat healthy, high-fiber foods. Drink 6 to 8 glasses of liquid each day. This will assist in keeping your bowels are regular. Pain management You may take Tylenol or acetaminophen or Ibuprofen (for example, Motrin, Advil etc.) from my pain prescription medication is ordered should be taken as prescribed for moderate to severe pain. [facility] SQL SERVER DBA DEVELOPER This report was requested by: Rafa Ahumada | Reference #: [id number] Call Dr. Santizo for any of the following: Severe pain not relieved by medication Fever of 101 or higher Excessive bleeding or drainage on dressing Inability to urinate Call the office at [phone] for an appointment in seven days. Referrals: Angelina Santizo MD [Staff Physician] - Disposition: HOME - Home Medications Comprehensive Discharge Medication List: Ambulatory Orders Docusate Sodium [Colace -] 100 mg PO BID #60 capsule 08/21/18 Ferrous Sulfate [Feosol] 325 mg PO TID #60 tablet 08/21/18 oxyCODONE HCL [Roxicodone -] 5 mg PO Q4H PRN #30 tablet MDD 6 08/24/18"
[2018-08-26] MEDS: oxyCODONE HCL 5 MG TABLET PO PRN (12:11)
[2018-08-26] MEDS: ACETAMINOPHEN 325 MG TABLET (FP) PO PRN (12:11)
== END 2018-08-26 13:30 | disposition home or self-care (01) | DRG 743 ==
LOC: JASUSAT 05:18 → EDSTATUS 10:00 → JSAMEDAYSX 13:45 → J3W 15:58
PROVIDERS: ADMIT Obstetrics & Gynecology; ATTEND Obstetrics & Gynecology
PROC: 0UB10ZZ Excision of Left Ovary, Open Approach (ICD-10-PCS; 2018-08-24)
PROC: 0UB90ZZ Excision of Uterus, Open Approach (ICD-10-PCS; principal; 2018-08-24 10:00)
DX: D25.9 Leiomyoma of uterus, unspecified (principal); N83.202 Unspecified ovarian cyst, left side; D64.9 Anemia, unspecified; N80.9 Endometriosis, unspecified; N93.9 Abnormal uterine and vaginal bleeding, unspecified
CPT/HCPCS: 36415; 80048; 84703; 85025; 85027; 86850; 86900; 86901; 86922; 88304-TC; 88305-TC; 94760